=== PATIENT | male | born 1995 | race Hispanic/Latino ===

== ENCOUNTER 2018-03-04 20:31 | Emergency (ER) | payer OTHER, SELFPAY | END 2018-03-04 21:10 | disposition home or self-care (01) | LOC: ERS 20:31 | DX: B02.9 Zoster without complications (principal) | CPT/HCPCS: 99282 ==

== ENCOUNTER 2018-09-27 20:40 | Emergency (ER) | payer OTHER ==
--- NOTE | 2018-09-27 21:14 | RAD ---
EXAM: 3 views of the left foot HISTORY: Injured foot playing football in April 2018. Patient was told there is a fracture 3 weeks ago and was instructed to wear a hard boot. The patient removed the boot to play basketball today and has pain in his left foot. COMPARISON: None FINDINGS: 3 views of the left foot shows no evidence of acute fracture or dislocation. No soft tissue swelling is seen. No degenerative changes are present. IMPRESSION: No evidence of acute osseous abnormality.
== END 2018-09-27 21:37 | disposition home or self-care (01) ==
LOC: SCSER 20:40
DX: M79.672 Pain in left foot (principal)